=== PATIENT | male | born 1995 | race Caucasian/White ===

== ENCOUNTER 2016-03-17 18:32 | Emergency (ER) | payer BC, OTHER ==
[2016-03-17 19:15] VITALS: BP 122/72
--- NOTE | 2016-03-17 19:40 | UC ---
Skin Complaint HPI - HPI Summary HPI Summary: complaint o frash that started 3 days ago started on his left arm then spread to his right arm and torso rash is not ithcy heis eyes wer swollen on the first day and that resolved with benadryl denies any new foods ,soaps, medications, denies fever - History of Current Complaint Chief Complaint: [facility] Time Seen by Provider: 03/17/16 19:34 Stated Complaint: RASH - Allergy/Home Medications Allergies/Adverse Reactions: Allergies Allergy/AdvReac Type Severity Reaction Status Date / Time No Known Allergies Allergy Verified 03/17/16 19:16 Home Medications: Home Medications diPHENhydraMINE PO* [Benadryl PO*] 50 mg PO Q6H PRN 03/17/16 [History Confirmed 03/17/16] Review of Systems Constitutional: Negative Skin: Rash Eyes: Negative ENT: Negative Respiratory: Negative Cardiovascular: Negative Gastrointestinal: Negative Genitourinary: Negative Motor: Negative Neurovascular: Negative Musculoskeletal: Negative Neurological: Negative Psychological: Negative All Other Systems Reviewed And Are Negative: Yes PMH/Surg Hx/FS Hx/Imm Hx Previously Healthy: Yes - seasonal allergies - Surgical History Surgical History: Yes Surgery Procedure, Year, and Place: T&A - Family History Known Family History: Negative: Cardiac Disease, Hypertension, Diabetes - Social History Occupation: Student Alcohol Use: Occasionally Substance Use Type: None Smoking Status (MU): Never Smoked Tobacco Physical Exam Triage Information Reviewed: Yes Appearance: No Pain Distress, Well-Nourished Vital Signs: Initial Vital Signs Temp 98.8 F 03/17/16 19:09 Pulse 83 03/17/16 19:09 Resp 16 03/17/16 19:09 BP 122/72 03/17/16 19:09 Pulse Ox 100 03/17/16 19:09 Vital Signs Reviewed: Yes Eyes: Positive: Conjunctiva Clear ENT: Positive: Pharynx normal, TMs normal. Negative: Nasal congestion, Tonsillar swelling, Tonsillar exudate Neck: Positive: No Lymphadenopathy Respiratory: Positive: Lungs clear, Normal breath sounds, No respiratory distress Cardiovascular: Positive: RRR, No Murmur, Pulses Normal Abdomen Description: Positive: Nontender, Soft Bowel Sounds: Positive: Present Musculoskeletal: Positive: No Edema Neurological: Positive: Alert Psychological Exam: Normal Skin Exam: Other - scattered papular rash that is over chest arms and back Course/Dx - Differential Diagnoses - Skin Complaint Differential Diagnoses: Allergic Reaction, Anaphylaxis, Contact Dermatitis - Diagnoses Provider Diagnoses: contact dermatitis Discharge - Discharge Plan Condition: Stable Disposition: HOME Prescriptions: predniSONE TAB* [Deltasone TAB*] 50 mg PO DAILY #5 tab Patient Education Materials: Contact Dermatitis (ED) Additional Instructions: Increase fluids and rest Take prednisone as directed Please review your discharge instructions. . If your symptoms do not improve please call your primary care provider or return to urgent care
== END 2016-03-17 19:58 | disposition home or self-care (01) ==
LOC: UCCORT 18:32
DX: L25.9 Unspecified contact dermatitis, unspecified cause (principal)
CPT/HCPCS: 99202; G0463

== ENCOUNTER 2017-04-05 09:14 | Emergency (ER) | payer BC, OTHER ==
[2017-04-05 10:51] VITALS: BP 141/82
--- NOTE | 2017-04-05 11:52 | UC ---
FLU HPI - HPI Summary HPI Summary: Cough, congestion, fever and achiness for 3 days. There has been some vomiting about 4 times since Monday. No diarrhea. - History of Current Complaint Chief Complaint: UCRespiratory Stated Complaint: COUGH,FEVER Time Seen by Provider: 04/05/17 11:36 Hx Obtained From: Patient Onset/Duration: Gradual Onset, Lasting Days Severity Currently: Moderate Severity Initially: Moderate Pain Intensity: 0 Associated Signs & Symptoms: Positive: Fever, Myalgia, Cough, Nasal Congestion, Vomiting - Allergy/Home Medications Allergies/Adverse Reactions: Allergies Allergy/AdvReac Type Severity Reaction Status Date / Time No Known Allergies Allergy Verified 04/05/17 10:40 PMH/Surg Hx/FS Hx/Imm Hx Previously Healthy: No - STrep throat. - Surgical History Surgical History: Yes Surgery Procedure, Year, and Place: T&A - Family History Known Family History: Negative: Cardiac Disease, Hypertension, Diabetes - Social History Occupation: Student Alcohol Use: Weekly Substance Use Type: Marijuana Substance Use Comment - Amount & Last Used: ONCE OR TWICE A DAY EVERY DAY OR EVERY OTHER DAY Smoking Status (MU): Never Smoked Tobacco Review of Systems Constitutional: Fever Respiratory: Cough Gastrointestinal: Nausea All Other Systems Reviewed And Are Negative: Yes Physical Exam Triage Information Reviewed: Yes Appearance: Well-Appearing, No Pain Distress, Well-Nourished Vital Signs: Initial Vital Signs Temp 98 F 04/05/17 10:38 Pulse 70 04/05/17 10:38 Resp 16 04/05/17 10:38 BP 141/82 04/05/17 10:38 Pulse Ox 100 04/05/17 10:38 Vital Signs Reviewed: Yes Eyes: Positive: Conjunctiva Clear ENT: Positive: Normal ENT inspection, Nasal congestion, TMs normal, Uvula midline. Negative: TM bulging, TM dull, TM red, Tonsillar swelling, Tonsillar exudate, Trismus, Muffled voice, Sinus tenderness Neck: Positive: Supple, Nontender, No Lymphadenopathy Respiratory: Positive: Lungs clear, Normal breath sounds, No respiratory distress, No accessory muscle use. Negative: Respiratory distress, Decreased breath sounds, Accessory muscle use, Crackles, Rhonchi, Stridor, Wheezing Cardiovascular: Positive: No Murmur, Pulses Normal, Brisk Capillary Refill Abdomen Description: Positive: No Organomegaly, Soft. Negative: CVA Tenderness (L), Distended, Guarding Musculoskeletal: Positive: ROM Intact, No Edema Neurological: Positive: Alert, Muscle Tone Normal. Negative: Fatigued Psychological: Positive: Age Appropriate Behavior Skin: Positive: rashes Flu Course/Dx - Course Course Of Treatment: supportive care described in detail. - Differential Dx/Diagnosis Differential Diagnosis/HQI/PQRI: Pneumonia Provider Diagnoses: influenza. Discharge - Discharge Plan Condition: Good Disposition: HOME Prescriptions: Ondansetron [Ondansetron Odt] 4 mg PO BID PRN #10 tab.rapdis PRN Reason: Nausea Oseltamivir CAP* [Tamiflu CAP*] 75 mg PO BID #10 cap Patient Education Materials: Influenza (ED) Referrals: No Primary Care Phys,NOPCP [Primary Care Provider] -
== END 2017-04-05 12:02 | disposition home or self-care (01) ==
LOC: UCCORT 09:14
DX: J10.1 Influenza due to other identified influenza virus with other respiratory manifestations (principal)
CPT/HCPCS: 87502; 99212; G0463